=== PATIENT | male | born 1985 | race Caucasian/White ===

== ENCOUNTER 2022-05-28 19:52 | Emergency (ER) | payer OTHER ==
[2022-05-28] MEDS ORDERED: Ketorolac 30 MG/ML SDV IM ONE (20:29)
== END 2022-05-28 22:13 | disposition home or self-care (01) ==
LOC: FB.ED 19:52
DX: S93.402A Sprain of unspecified ligament of left ankle, initial encounter (principal); Z87.891 Personal history of nicotine dependence; X50.1XXA Overexertion from prolonged static or awkward postures, initial encounter
CPT/HCPCS: 73610; 96372; 99283; J1885